=== PATIENT | male | born 1940 | race Caucasian/White ===

== ENCOUNTER 2016-09-01 12:20 | Emergency (ER) | payer MEDICARE, MEDICAID ==
[~2016-09-01 12:20] MED LIST: CYCL1TAB29 PO; FINA5TAB2 PO; FLUO10CA5 PO; GABA600T PO; HYDR12.57 PO; LISI10TA3 PO; OMEP40CA2 PO; OXYC1TAB36 PO; TAMS0.4C4 PO; TEMA30CA PO
[2016-09-01 12:25] VITALS: BP 133/85; PULSE 84; RESP 16; TEMP 98.2; O2SAT 98
--- NOTE | 2016-09-01 12:41 | PD ---
HPI Chief Complaint: Musculoskeletal Complaint Time Seen by Provider: 12:41 Travel History International Travel<30 days: No Contact w/Intl Traveler<30days: No Traveled to known affect area: No History of Present Illness HPI 76 YO [place]i only speaking male with PMH of squamous cell carcinoma, pancreatitis, hypertension, chronic back pain presents to the ED for evaluation of right shoulder pain. Patient states that he has had this pain for a few weeks but now moved into his arm and chest. No exacerbating factors reported. In fact the patient states that he works out "like a bull" a few times a week. He denies associated palpitations, shortness of breath, nausea, vomiting, diaphoresis. He states that he has had a few episodes of right-sided cramping under the rib cage. He denies fever, chills, coughing, nausea, vomiting, melena , hematochezia. He endorses colonoscopy within the last 3-4 years. Patient is very verbose, difficult to redirect, history taking was 37 minutes total. [facility] Social History Tobacco Use: Yes Allergies-Medications (Allergen,Severity, Reaction): Coded Allergies: Aspirin (Verified Allergy, Severe, Hives, 09/01/16) Sulfa (Verified Allergy, Severe, Hives, 09/01/16) Uncoded Allergies: MEPROBAMATE (Allergy, Severe, Psychosis, 06/14/16) Tri-Mix (Papaverin,Phentolamine,Prostaglandin) (Allergy, Severe, Swelling, 08/04/16) blisters, sores on skin Reported Meds & Prescriptions Reported Meds & Active Scripts Active Macrobid (Nitrofurantoin Monoh/Nitrofur Macro) 100 Mg Cap 100 Mg PO BID 7 Days Reported Gabapentin 600 Mg Tab 600 Mg PO TID Omeprazole 40 Mg Cap 40 Mg PO DAILY Temazepam 30 Mg Cap 30 Mg PO HS PRN Tamsulosin (Tamsulosin HCl) 0.4 Mg Cap 0.4 Mg PO HS Oxycodone-Acetaminophen 10-325 mg Tab 1 Tab PO TID PRN Fluoxetine (Fluoxetine HCl) 10 Mg Cap 10 Mg PO DAILY Flexeril (Cyclobenzaprine HCl) 10 Mg Tab 10 Mg PO TID Hydrochlorothiazide 12.5 Mg Cap 12.5 Mg PO DAILY Lisinopril 10 Mg Tab 10 Mg PO DAILY Finasteride 5 Mg Tab 5 Mg PO DAILY Do not crush. Review of Systems Except as stated in HPI: all other systems reviewed are Neg Physical Exam Narrative GENERAL: Well-nourished, well-developed obese male in no acute distress. SKIN: Focused skin assessment warm/dry. HEAD: Normocephalic. EYES: No scleral icterus. No injection or drainage. NECK: Supple, trachea midline. No JVD or lymphadenopathy. CARDIOVASCULAR: Regular rate and rhythm without murmurs, gallops, or rubs. RESPIRATORY: Breath sounds clear and equal bilaterally. No accessory muscle use. GASTROINTESTINAL: Abdomen soft, protuberant, non-tender, nondistended. Active bowel sounds. No palpable masses. MUSCULOSKELETAL: No cyanosis, or edema. FOCUSED RIGHT UPPER EXTREMITY EXAM: 2+ radial pulse. No tenderness to palpation of the scapula, acromioclavicular joint or humerus. 5/5 strength in all muscle groups of the upper extremity. BACK: Nontender without obvious deformity. No CVA tenderness. Data Data Last Documented VS Vital Signs Date Time Temp Pulse Resp B/P Pulse Ox O2 Delivery O2 Flow Rate FiO2 09/01/16 17:11 82 15 137/87 98 09/01/16 12:25 98.2 Orders Complete Blood Count With Diff (09/01/16 13:17) Comprehensive Metabolic Panel (09/01/16 13:17) Lipase (09/01/16 13:17) Prothrombin Time / Inr (Pt) (09/01/16 13:17) Act Partial Throm Time (Ptt) (09/01/16 13:17) Urinalysis - C+S If Indicated (09/01/16 13:17) Ct Abd/Pel W Iv Contrast(Rout) (09/01/16 13:17) Iv Access Insert/Monitor (09/01/16 13:17) Ecg Monitoring (09/01/16 13:17) Oximetry (09/01/16 13:17) Morphine Inj (Morphine Inj) (09/01/16 13:30) Sodium Chlor 0.9% 1000 Ml Inj (Ns 1000 M (09/01/16 13:17) Sodium Chloride 0.9% Flush (Ns Flush) (09/01/16 13:30) Electrocardiogram (09/01/16 13:17) Ct Thorax/ Chest W Iv Contrast (09/01/16 ) Shoulder, Complete (>2vws) (09/01/16 14:36) Urine Culture (09/01/16 15:45) Labs Laboratory Tests Test 09/01/16 09/01/16 13:20 15:45 White Blood Count 9.7 TH/MM3 Red Blood Count 4.99 MIL/MM3 Hemoglobin 14.8 GM/DL Hematocrit 44.2 % Mean Corpuscular Volume 88.7 FL Mean Corpuscular Hemoglobin 29.8 PG Mean Corpuscular Hemoglobin 33.5 % Concent Red Cell Distribution Width 13.8 % Platelet Count 217 TH/MM3 Mean Platelet Volume 9.5 FL Neutrophils (%) (Auto) 66.2 % Lymphocytes (%) (Auto) 20.9 % Monocytes (%) (Auto) 9.7 % Eosinophils (%) (Auto) 2.8 % Basophils (%) (Auto) 0.4 % Neutrophils # (Auto) 6.4 TH/MM3 Lymphocytes # (Auto) 2.0 TH/MM3 Monocytes # (Auto) 0.9 TH/MM3 Eosinophils # (Auto) 0.3 TH/MM3 Basophils # (Auto) 0.0 TH/MM3 CBC Comment DIFF FINAL Differential Comment Prothrombin Time 10.8 SEC Prothromb Time International 1.0 RATIO Ratio Activated Partial 28.7 SEC Thromboplast Time Sodium Level 138 MEQ/L Potassium Level 4.1 MEQ/L Chloride Level 107 MEQ/L Carbon Dioxide Level 22.5 MEQ/L Anion Gap 9 MEQ/L Blood Urea Nitrogen 17 MG/DL Creatinine 1.03 MG/DL Estimat Glomerular Filtration 70 ML/MIN Rate Random Glucose 106 MG/DL Calcium Level 8.4 MG/DL Total Bilirubin 0.3 MG/DL Aspartate Amino Transf 20 U/L (AST/SGOT) Alanine Aminotransferase 40 U/L (ALT/SGPT) Alkaline Phosphatase 86 U/L Total Protein 6.9 GM/DL Albumin 3.3 GM/DL Lipase 122 U/L Urine Color YELLOW Urine Turbidity CLEAR Urine pH 5.5 Urine Specific [place] 1.018 Urine Protein NEG mg/dL Urine Glucose (UA) NEG mg/dL Urine Ketones NEG mg/dL Urine Occult Blood TRACE Urine Nitrite POS Urine Bilirubin NEG Urine Urobilinogen LESS THAN 2.0 MG/DL Urine Leukocyte Esterase LARGE Urine RBC 2 /hpf Urine WBC 18 /hpf Urine Squamous Epithelial <1 /hpf Cells Urine Bacteria MANY /hpf Microscopic Urinalysis Comment CULTURE INDICATED MDM Medical Decision Making Medical Screen Exam Complete: Yes Emergency Medical Condition: Yes Differential Diagnosis Metastatic disease versus cholecystitis versus musculoskeletal pain versus other Narrative Course 76 YO [place] only speaking male with PMH of squamous cell carcinoma, pancreatitis, hypertension presents to the ED for evaluation of "a few weeks history" of right shoulder pain, now moved into his arm and chest. No exacerbating factors reported. He denies associated palpitations, shortness of breath, nausea, vomiting, diaphoresis. He states that he has had a few episodes of right-sided cramping under the rib cage. He denies nausea, vomiting , melena, hematochezia. He endorses colonoscopy within the last 3-4 years. Patient is very verbose, difficult to redirect, history taking was 37 minutes total. Vitals reviewed. Patient is nontoxic-appearing on physical exam. Chest is CTAB. Abdomen is unremarkable. There is no tenderness to palpation, loss of strength or limitations to range of motion of the right shoulder. Patient was administered 4 mg of morphine and a liter of normal saline. EKG rate 80, sinus rhythm. NH interval 157, QRS 99, QTC 406 ms. Incomplete RBBB. No acute ST changes. Reviewed by Dr. Garcia. No acute abnormalities of the CBC, CMP or coags. CT of the abdomen without acute findings. CT of the chest with no acute abnormality per radiology read. Right shoulder x-ray reveals osteoarthritis of the acromioclavicular joint. UA: Nitrate positive. Unfortunately the patient is allergic to NSAIDs. I discussed the results of the workup with the patient. We'll prescribe Macrobid 100 mg twice a day 7 days. He is instructed to avoid heavy lifting or overuse the shoulder, follow- up with the orthopedist for further evaluation. The patient indicated understanding of the instructions and is agreeable to the care plan. He is stable and discharged home. Diagnosis Primary Impression: Osteoarthritis of right shoulder Qualified Code: M19.011 - Osteoarthritis of right shoulder, unspecified osteoarthritis type Additional Impression: UTI (urinary tract infection) Qualified Code: N39.0 - Urinary tract infection without hematuria, site unspecified Referrals: Orthopedist Patient Instructions: General Instructions, Osteoarthritis (ED) Additional Instructions: Rest, hydrate. Take antibiotics as prescribed. Take them until they are all gone. No heavy lifting with the right arm for 10 days. Warm or cold compresses applied to the shoulder for 10-15 minutes a few times per day may help to decrease your pain symptoms. Follow up with the orthopedist for further evaluation. Return to the ED for any urgent or emergent medical condition. Med/Other Pt SpecificInfo: Prescription(s) given Scripts Nitrofurantoin Monohydrate Macrocrystals (Macrobid)100 Mg Flx481 Mg PO BID 7 Days Ref 0 Prov:Ammy Garcia MD 09/01/16 Disposition: 01 DISCHARGE HOME Condition: Stable Darlene Ray Sep 01, 2016 12:41
[2016-09-01] MEDS ORDERED: SODIUM CHLOR 0.9% 1000 ML INJ 1,000 ML IV SCH (13:17)
[2016-09-01] MEDS ORDERED: SODIUM CHLORIDE 0.9% FLUSH 10 ML FLUSH IV FLUSH PRN (13:30)
[2016-09-01] MEDS ORDERED: MORPHINE SULFATE 4 MG/ML INJ IV PUSH ONE (13:30)
[2016-09-01 13:44] LABS: AUTOMATED NEUTROPHIL # 6.4 TH/MM3 (1.8-7.7); BASOPHIL % 0.4 % (0.0-2.0); EOSINOPHIL # 0.3 TH/MM3 (0-0.4); EOSINOPHIL % 2.8 % (0.0-4.0); HEMATOCRIT 44.2 % (39.0-51.0); HEMO FLAGS DIFF FINAL; LYMPH % 20.9 % (9.0-44.0); MEAN CELL VOLUME 88.7 FL (80.0-100.0); MEAN CORPUSCULAR HEMOGLOBIN 29.8 PG (27.0-34.0); MEAN CORPUSCULAR HGB CONC 33.5 % (32.0-36.0); MONO % 9.7 % (0.0-8.0); NEUT % 66.2 % (16.0-70.0); PLATELET COUNT 217 TH/MM3 (150-450); RED BLOOD COUNT 4.99 MIL/MM3 (4.50-5.90); RED CELL DISTRIBUTION WIDTH 13.8 % (11.6-17.2); WHITE BLOOD COUNT 9.7 TH/MM3 (4.0-11.0)
[2016-09-01 13:55] LABS: APTT (PATIENT) 28.7 SEC (24.3-30.1); PROTHROMBIN TIME - PATIENT 10.8 SEC (9.8-11.6)
[2016-09-01 14:01] LABS: ANION GAP 9 MEQ/L (5-15); AST (GOT) 20 U/L (15-37); BICARBONATE 22.5 MEQ/L (21.0-32.0); BLOOD UREA NITROGEN 17 MG/DL (7-18); CHLORIDE 107 MEQ/L (98-107); GLOMERULAR FILTRATION RATE 70 ML/MIN (>89); POTASSIUM 4.1 MEQ/L (3.5-5.1); SODIUM (NA) 138 MEQ/L (136-145)
[2016-09-01 14:08] LABS: ALKALINE PHOSPHATASE 86 U/L (45-117); ALT (GPT) 40 U/L (12-78); TOTAL BILIRUBIN ADULT 0.3 MG/DL (0.2-1.0)
[2016-09-01 14:30] VITALS: BP 122/79; PULSE 74; RESP 16; O2SAT 98
[2016-09-01] MEDS ORDERED: IOHEXOL 350 MG/ML 10 ML VIAL (for RAD DIAG) IV ONE (15:17)
--- NOTE | 2016-09-01 15:29 | RADRPT ---
EXAM DATE/TIME: 09/01/2016 15:14 [facility] COMPARISON: No previous studies available for comparison. INDICATIONS : Pain radiating down right arm. MEDICAL HISTORY : None. SURGICAL HISTORY : None. ENCOUNTER: Initial ACUITY: 1 day PAIN SCORE: 5/10 LOCATION: Right shoulder. FINDINGS: 4 views of the right shoulder demonstrate no fracture or dislocation. Mineralization is within normal limits. There are degenerative changes at the greater tuberosity. Acromioclavicular joint is intact but demonstrates a mild to moderate hypertrophic osteoarthritis. No soft tissue abnormality is identi fied. CONCLUSION: No acute right shoulder abnormality is identified. There is osteoarthritis of the acromioclavicular j oint. Darius Steel MD on September 01, 2016 at 15:26 Board Certified Radiologist. This report was verified electronically.
--- NOTE | 2016-09-01 15:44 | RADRPT ---
EXAM DATE/TIME: 09/01/2016 15:17 [facility] COMPARISON: No previous studies available for comparison. INDICATIONS : Right upper quadrant pain radiating to shoulder. IV CONTRAST: 100 cc Omnipaque 350 (iohexol) IV ; Cumulative dose for multiple exams. ORAL CONTRAST: No oral contrast ingested. RADIATION DOSE: 16.69 CTDIvol (mGy) ; Combined studies - Thorax/Abdomen/Pelvis MEDICAL HISTORY : Hypertension. SURGICAL HISTORY : Bladder, prostate, gi bleed, urethra ENCOUNTER: Initial ACUITY: 2 days PAIN SCALE: 6/10 LOCATION: Right upper quadrant TECHNIQUE: Volumetric scanning of the abdomen and pelvis was performed. Using automated exposure control and ad justment of the mA and/or kV according to patient size, radiation dose was kept as low as reasonably achievable to obtain optimal diagnostic quality images. DICOM format image data is available electro nically for review and comparison. FINDINGS: LOWER LUNGS: Please refer to chest CT report for description of the supradiaphragmatic findings. LIVER: The liver measures 19.3 cm and demonstrates attenuation characteristic of steatosis. No lesion is see n. There is no dilation of the biliary tree. No calcified gallstones. SPLEEN: Normal size without lesion. PANCREAS: Within normal limits. KIDNEYS: Both kidneys demonstrate areas of parenchymal scar. There are 2 low-density lesions in the right kidn ey measuring 11 mm and 16 mm and have density measurements characteristic of simple cysts. ADRENAL GLANDS: Within normal limits. VASCULAR: There is no aortic aneurysm. There is mild atherosclerotic disease. BOWEL/MESENTERY: The stomach, small bowel, and colon demonstrate no acute abnormality. There is no free intraperitone al air or fluid. There is sigmoid diverticulosis. ABDOMINAL WALL: There is thinning of the rectus abdominis musculature inferiorly adjacent to the pubic bone. Mesh is present in this area related to prior hernia repair. There is a right inguinal hernia containing a po rtion of the right urinary bladder. RETROPERITONEUM: There is no lymphadenopathy. BLADDER: A portion of the right urinary bladder extends into a right inguinal hernia. There is no wall thicken ing or mass. REPRODUCTIVE: Within normal limits. INGUINAL: There is no lymphadenopathy. There is a right inguinal hernia. MUSCULOSKELETAL: There are degenerative changes of the spine. CONCLUSION: 1. No acute finding is identified to explain the clinical symptoms. 2. There is a small right inguinal hernia containing a portion of the urinary bladder. 3. Nonacute findings include hepatic steatosis, mild atherosclerotic disease, sigmoid diverticulosis, and bilateral renal scarring. Darius Steel MD on September 01, 2016 at 15:33 Board Certified Radiologist. This report was verified electronically.
--- NOTE | 2016-09-01 15:46 | RADRPT ---
EXAM DATE/TIME: 09/01/2016 15:17 [facility] COMPARISON: No previous studies available for comparison. INDICATIONS : Right upper quadrant pain radiating to shoulder. IV CONTRAST: 100 cc Omnipaque 350 (iohexol) IV ; Cumulative dose for multiple exams. RADIATION DOSE: 16.69 CTDIvol (mGy) ; Combined studies - Thorax/Abdomen/Pelvis MEDICAL HISTORY : Hypertension. SURGICAL HISTORY : Bladder, prostate urethra, gi bleed ENCOUNTER: Initial ACUITY: 1 day PAIN SCALE: 6/10 LOCATION: abdominal TECHNIQUE: Volumetric scanning of the chest was performed. Using automated exposure control and adjustment of t he mA and/or kV according to patient size, radiation dose was kept as low as reasonably achievable to obtain optimal diagnostic quality images. DICOM format image data is available electronically for review and comparison. Follow-up recommendations for incidentally detected pulmonary nodules are based at a minimum on nodul e size and patient risk factors according to Fleischner Society Guidelines. FINDINGS: LUNGS: There is no consolidation or pneumothorax. No concerning pulmonary nodule is visualized. PLEURA: There is no pleural thickening or pleural effusion. MEDIASTINUM: The heart and great vessels demonstrate no acute abnormality. There is no mediastinal or hilar lymph adenopathy. AXILLAE: Within normal limits. No lymphadenopathy. SKELETAL: There are degenerative changes of the thoracic spine. MISCELLANEOUS: Please refer to abdomen and pelvis CT report for description of the subdiaphragmatic findings. CONCLUSION: No acute abnormality is identified within the chest. Darius Steel MD on September 01, 2016 at 15:42 Board Certified Radiologist. This report was verified electronically.
[2016-09-01 16:02] LABS: BACTERIA, URINE MANY /hpf; BLOOD, URINE TRACE (NEG); COMMENT (UR) CULTURE INDICATED; CULTURE IF INDICATED CULTURE INDICATED; GLUCOSE,URINE NEG (NEG); KETONE, URINE NEG (NEG); PH, URINE 5.5 (5.0-8.5); SQUAMOUS EPITHELIAL CELL URINE <1 /hpf (0-5); URINE COLOR YELLOW (YELLW/STRAW)
[2016-09-01 16:03] LABS: NITRITE,URINE POS (NEG)
[2016-09-01] MEDS ORDERED: MACR100C2 PO (16:28)
[2016-09-01 17:11] VITALS: BP 137/87
--- NOTE | 2016-09-02 12:26 | EKG ---
Date Performed: 09/01/2016 Time Performed: 12:45:07 PTAGE: 76 years EKG: Sinus rhythm INCOMPLETE RIGHT BUNDLE BRANCH BLOCK LEFT ANTERIOR FASCICULAR BLOCK ABNORMAL ECG NO PREVIOUS TRACING DOCTOR: Daniel Valadez Interpretating Date/Time 09/02/2016 12:20:42
== END 2016-09-01 17:11 | disposition home or self-care (01) ==
LOC: NEPE 12:20
DX: M19.011 Primary osteoarthritis, right shoulder (principal); N39.0 Urinary tract infection, site not specified; I10 Essential (primary) hypertension; Z72.0 Tobacco use; B96.20 Unspecified Escherichia coli [E. coli] as the cause of diseases classified elsewhere
CPT/HCPCS: 71260; 73030; 74177; 80053; 81001; 83690; 85025; 85610; 85730; 87077; 87086; 87186; 93005; 96374; 99285; J2270; J7030; Q9967

== ENCOUNTER 2016-09-28 02:25 | Observation (INO) | payer MEDICARE, MEDICAID ==
[~2016-09-28] VITALS: Ht 175.3 cm; Wt 90.0 kg
[2016-09-28] VITALS (7 sets, daily range): BP systolic 114–175; BP diastolic 75–99; PULSE 67–92; RESP 15–24; TEMP 97.8–97.9; O2SAT 95–99
[~2016-09-28 02:25] MED LIST changes: +MACR100C2 PO
--- NOTE | 2016-09-28 02:58 | PD ---
HPI Chief Complaint: Abdominal Pain Time Seen by Provider: 02:38 Travel History International Travel<30 days: No Contact w/Intl Traveler<30days: No Traveled to known affect area: No History of Present Illness HPI PATIENT IS CYPRIOT SPEAKING (SOUTH A[place]). C/O EPIG REGION PAIN, 09/21, ONSET SINCE 2199 TODAY, NONRAD, DIFFICULT FOR PATIENT TO DESCRIBE PAIN HE STATES THAT IT HAS FELT SHARP,BURNING/PRESSURE ALL AT DIFFERENT TIMES TODAY. PT STATES THAT HE DIDN'T TAKE HIS PERCOCET B/C HE DIDN'T WANT TO MASK ANYTHING. ALL: ASA(ANGIOEDEMA), SULFA (HIVES), METHYLENE BLUE AND RED DYE PMHX: HTN, BPH, CHRONIC BACK PAIN WITH BULGING DISK MEDS: LISINOPRIL, HCTZ, FLOMAX, NEURONTIN, PERCOCET 10MG SMOKES 02/[address] LAW [facility] Past Medical History Cancer: Yes Gastrointestinal Disorders: Yes (HX GI BLEED) Genitourinary: Yes (BPH) Hypertension: Yes Musculoskeletal: Yes (DDD) Tetanus Vaccination: Unknown Past Surgical History Surgical History: No Previous Surgery Abdominal Surgery: Yes (HERNIA) Genitourinary Surgery: Yes (URETHRAL, PROSTATE) Other Surgery: Yes (SKIN CA REMOVAL, HEMORRHOID) Social History Alcohol Use: No Tobacco Use: Yes (02/15 ppd) Substance Use: No Allergies-Medications (Allergen,Severity, Reaction): Coded Allergies: Sulfa (Sulfonamide Antibiotics) (Unverified Allergy, Severe, Hives, ) aspirin (Unverified Allergy, Severe, Anaphylaxis, 09/28/16) methylene blue (Unverified Allergy, Unknown, 09/28/16) red dye (Unverified Allergy, Unknown, 09/28/16) Uncoded Allergies: MEPROBAMATE (Allergy, Severe, Psychosis, 06/14/16) Tri-Mix (Papaverin,Phentolamine,Prostaglandin) (Allergy, Severe, Swelling, 08/04/16) blisters, sores on skin Reported Meds & Prescriptions Reported Meds & Active Scripts Active Reported Gabapentin 600 Mg Tab 600 Mg PO TID Tamsulosin (Tamsulosin HCl) 0.4 Mg Cap 0.4 Mg PO HS Oxycodone-Acetaminophen 10-325 mg Tab 1 Tab PO TID PRN Hydrochlorothiazide 12.5 Mg Cap 12.5 Mg PO DAILY Lisinopril 10 Mg Tab 10 Mg PO DAILY Review of Systems Except as stated in HPI: all other systems reviewed are Neg Gastrointestinal: Positive: Nausea, Abdominal Pain Physical Exam Narrative GENERAL: SKIN: Warm and dry. HEAD: Atraumatic. Normocephalic. EYES: Pupils equal and round. No scleral icterus. No injection or drainage. ENT: No nasal bleeding or discharge. Mucous membranes pink and moist. NECK: Trachea midline. No JVD. CARDIOVASCULAR: Regular rate and rhythm. RESPIRATORY: No accessory muscle use. Clear to auscultation. Breath sounds equal bilaterally. GASTROINTESTINAL: Abdomen soft, EPIG TTP, nondistended. MUSCULOSKELETAL: Extremities without clubbing, cyanosis, or edema. No obvious deformities. NEUROLOGICAL: Awake and alert. No obvious cranial nerve deficits. Motor grossly within normal limits. Five out of 5 muscle strength in the arms and legs. Normal speech. PSYCHIATRIC: Appropriate mood and affect; insight and judgment normal. Data Data Last Documented VS Vital Signs Date Time Temp Pulse Resp B/P Pulse Ox O2 Delivery O2 Flow Rate FiO2 09/28/16 02:50 97.8 84 18 127/75 96 Room Air Orders Electrocardiogram (09/28/16 02:50) Complete Blood Count With Diff (09/28/16 02:50) Comprehensive Metabolic Panel (09/28/16 02:50) Ckmb (Isoenzyme) Profile (09/28/16 02:50) Troponin I (09/28/16 02:50) B-Type Natriuretic Peptide (09/28/16 02:50) Amylase (09/28/16 02:50) Lipase (09/28/16 02:50) Ct Abd/Pel W Iv Contrast(Rout) (09/28/16 02:50) Iv Access Insert/Monitor (09/28/16 02:50) Ecg Monitoring (09/28/16 02:50) Oximetry (09/28/16 02:50) Alcohol (Ethanol) (09/28/16 02:50) Salicylates (Aspirin) (09/28/16 02:50) Tylenol (Acetaminophen) (09/28/16 02:50) Ondansetron Inj (Zofran Inj) (09/28/16 03:00) Hydromorphone Pf Inj (Dilaudid Pf Inj) (09/28/16 03:00) Iohexol 350 Inj (Omnipaque 350 Inj) (09/28/16 04:03) Admit Order (Ed Use Only) (09/28/16 04:42) Labs Laboratory Tests Test 09/28/16 02:57 White Blood Count 9.3 TH/MM3 Red Blood Count 4.98 MIL/MM3 Hemoglobin 14.8 GM/DL Hematocrit 43.9 % Mean Corpuscular Volume 88.1 FL Mean Corpuscular Hemoglobin 29.7 PG Mean Corpuscular Hemoglobin 33.7 % Concent Red Cell Distribution Width 13.6 % Platelet Count 208 TH/MM3 Mean Platelet Volume 9.1 FL Neutrophils (%) (Auto) 67.2 % Lymphocytes (%) (Auto) 17.2 % Monocytes (%) (Auto) 11.6 % Eosinophils (%) (Auto) 3.2 % Basophils (%) (Auto) 0.8 % Neutrophils # (Auto) 6.3 TH/MM3 Lymphocytes # (Auto) 1.6 TH/MM3 Monocytes # (Auto) 1.1 TH/MM3 Eosinophils # (Auto) 0.3 TH/MM3 Basophils # (Auto) 0.1 TH/MM3 CBC Comment DIFF FINAL Differential Comment Sodium Level 138 MEQ/L Potassium Level 4.2 MEQ/L Chloride Level 103 MEQ/L Carbon Dioxide Level 26.6 MEQ/L Anion Gap 8 MEQ/L Blood Urea Nitrogen 18 MG/DL Creatinine 1.16 MG/DL Estimat Glomerular Filtration 61 ML/MIN Rate Random Glucose 171 MG/DL Calcium Level 8.1 MG/DL Total Bilirubin 0.2 MG/DL Aspartate Amino Transf 26 U/L (AST/SGOT) Alanine Aminotransferase 48 U/L (ALT/SGPT) Alkaline Phosphatase 103 U/L Total Creatine Kinase 86 U/L Troponin I LESS THAN 0.02 NG/ML B-Type Natriuretic Peptide 19 PG/ML Total Protein 6.8 GM/DL Albumin 3.2 GM/DL Amylase Level 23 U/L Lipase 123 U/L Salicylates Level 1.9 MG/DL Acetaminophen Level LESS THAN 2.0 MCG/ML Ethyl Alcohol Level LESS THAN 3 MG/DL MDM Medical Decision Making Medical Screen Exam Complete: Yes Emergency Medical Condition: Yes Medical Record Reviewed: Yes Interpretation(s) NSR 81, IRBBB, NONSPEC STT CHANGES, NO STEMI PATTERN Differential Diagnosis PANCREATITIS V AAA V TX V NONSTEMI V GB DZ Narrative Course NO E/O AAA, NL LIPASE, BUT CT DID SHOW SOME QUESTIONABLE GB FINDINGS, NO OBVIOUS CHOLECYSTITIS/CHOLEDOCHOLITHIASIS NOR ANY GROSS E/O GB ABSCESS...DUE TO PATIENT'S AGE AND RISK FACTORS, I BELIEVE IT PRUDENT TO EXCLUDE NONSTEMI. Diagnosis Primary Impression: ATYPICAL CP R/O TX Additional Impression: Gallbladder sludge Admitting Information Admitting Physician Requests: Observation Noel Drummond MD Sep 28, 2016 02:58 Noel Drummond MD Sep 28, 2016 02:58
[2016-09-28] MEDS ORDERED: HYDROmorphone HCL PF 1 MG/ML VIAL IV PUSH ONE (03:00)
[2016-09-28] MEDS ORDERED: ONDANSETRON HCL 4 MG/2 ML VIAL IV PUSH ONE (03:00)
[2016-09-28 03:06] LABS: AUTOMATED NEUTROPHIL # 6.3 TH/MM3 (1.8-7.7); BASOPHIL # 0.1 TH/MM3 (0-0.2); BASOPHIL % 0.8 % (0.0-2.0); EOSINOPHIL # 0.3 TH/MM3 (0-0.4); EOSINOPHIL % 3.2 % (0.0-4.0); HEMATOCRIT 43.9 % (39.0-51.0); HEMO FLAGS DIFF FINAL; LYMPH % 17.2 % (9.0-44.0); LYMPHOCYTE # 1.6 TH/MM3 (1.0-4.8); MEAN CELL VOLUME 88.1 FL (80.0-100.0); MEAN CORPUSCULAR HEMOGLOBIN 29.7 PG (27.0-34.0); MEAN CORPUSCULAR HGB CONC 33.7 % (32.0-36.0); MONO % 11.6 % (0.0-8.0); NEUT % 67.2 % (16.0-70.0); PLATELET COUNT 208 TH/MM3 (150-450); RED BLOOD COUNT 4.98 MIL/MM3 (4.50-5.90); RED CELL DISTRIBUTION WIDTH 13.6 % (11.6-17.2); WHITE BLOOD COUNT 9.3 TH/MM3 (4.0-11.0)
[2016-09-28 03:41] LABS: ACETAMINOPHEN LESS THAN 2.0 MCG/ML (10.0-30.0); ALKALINE PHOSPHATASE 103 U/L (45-117); ALT (GPT) 48 U/L (12-78); AMYLASE 23 U/L (25-115); ANION GAP 8 MEQ/L (5-15); AST (GOT) 26 U/L (15-37); BICARBONATE 26.6 MEQ/L (21.0-32.0); BLOOD UREA NITROGEN 18 MG/DL (7-18); CHLORIDE 103 MEQ/L (98-107); GLOMERULAR FILTRATION RATE 61 ML/MIN (>89); POTASSIUM 4.2 MEQ/L (3.5-5.1); SODIUM (NA) 138 MEQ/L (136-145); TOTAL BILIRUBIN ADULT 0.2 MG/DL (0.2-1.0)
[2016-09-28 03:42] LABS: ALCOHOL LESS THAN 3 MG/DL (0-5); CREATINE KINASE 86 U/L (39-308)
[2016-09-28] MEDS ORDERED: IOHEXOL 350 MG/ML 10 ML VIAL (for RAD DIAG) IV ONE (04:03)
--- NOTE | 2016-09-28 04:36 | RADRPT ---
EXAM DATE/TIME: 09/28/2016 03:56 [facility] COMPARISON: CT ABDOMEN & PELVIS W CONTRAST, September 01, 2016, 15:17. INDICATIONS : Epigastric pain with nausea and vomiting. IV CONTRAST: 100 cc Omnipaque 350 (iohexol) IV ORAL CONTRAST: No oral contrast ingested. RADIATION DOSE: 14.32 CTDIvol (mGy) MEDICAL HISTORY : Hypertension. Renal calculi. GI bleed SURGICAL HISTORY : Hernia repair ENCOUNTER: Initial ACUITY: 1 day PAIN SCALE: 7/10 LOCATION: epigastric TECHNIQUE: Volumetric scanning of the abdomen and pelvis was performed. Using automated exposure control and ad justment of the mA and/or kV according to patient size, radiation dose was kept as low as reasonably achievable to obtain optimal diagnostic quality images. DICOM format image data is available electro nically for review and comparison. FINDINGS: LOWER LUNGS: The visualized lower lungs are clear. LIVER: Regional fatty change without focal masses. No dilation of the intrahepatic biliary system. No calc ified gallstones. On axial images, the gallbladder wall is thin, but on the coronal reconstructions, there appears to be some induration of the fat about the inferior margin of the gallbladder. SPLEEN: Normal size without lesion. PANCREAS: Within normal limits. KIDNEYS: Stable appearance to the kidneys with bilateral cortical scarring and renal cysts. No evidence of hy dronephrosis. ADRENAL GLANDS: Within normal limits. VASCULAR: There is no aortic aneurysm. BOWEL/MESENTERY: There is a solitary loop of small bowel in the lower midline abdomen which is mildly dilated to 3.1 c m and demonstrates fecalization. There is an abrupt change in the diameter of small bowel at image # 55, but no mass is seen. Numerous sigmoid diverticula are present without radiographic evidence of d iverticulitis. ABDOMINAL WALL: Low abdominal ventral hernia repair mesh in place. RETROPERITONEUM: There is no lymphadenopathy. BLADDER: No wall thickening or mass. REPRODUCTIVE: Within normal limits. INGUINAL: Right inguinal hernia with protrusion of a portion of the urinary bladder, similar in appearance to p rior exam. MUSCULOSKELETAL: Within normal limits for patient age. CONCLUSION: 1. Questionable induration of the fat along the inferior margin of the gallbladder, only seen on craig nal reconstruction images. No calcified gallstones. If there is clinical suspicion for acalculus ch olecystitis, may consider performing hepatobiliary tract scan. 2. Fecalization of one loop of small bowel in the lower mid abdomen with mild dilation of the loop to 3.1 cm. Fecalization is a nonspecific finding that can be seen with obstruction, ischemia, ileus, a nd inflammation. 3. Stable right inguinal hernia containing a portion of the urinary bladder. Dickson Aceves MD on September 28, 2016 at 4:16 Board Certified Radiologist. This report was verified electronically.
[2016-09-28] MEDS ORDERED: ONDANSETRON HCL 4 MG/2 ML VIAL IV PRN (04:45)
[2016-09-28] MEDS ORDERED: MORPHINE SULFATE 4 MG/ML INJ IV PRN (04:45)
[2016-09-28] MEDS ORDERED: NITROGLYCERIN 0.4 MG SL 25 TABS/BTL SL PRN (04:45)
--- NOTE | 2016-09-28 06:17 | RADRPT ---
EXAM DATE/TIME: 09/28/2016 05:06 [facility] COMPARISON: No previous studies available for comparison. INDICATIONS : Right upper quadrant pain. MEDICAL HISTORY : Hypertension. GI bleed. SURGICAL HISTORY : Cyst removed from lung. Hernia repair. Bladder surgery. Skin cancer removal. ENCOUNTER: Initial ACUITY: 1 day PAIN SCORE: 0/10 LOCATION: Right upper quadrant MEASUREMENTS: LIVER: 16.6 cm length COMMON DUCT: 5 mm RIGHT KIDNEY: 9.0 x 5.1 x 5.6 cm FINDINGS: LIVER: Normal echotexture without focal lesion or ductal dilatation. Hepatopedal flow is seen in the portal vein. COMMON DUCT: No intraluminal mass or stone visualized. GALLBLADDER: The sludge in the gallbladder lumen. No shadowing stones. The gallbladder wall is normal thickness. PANCREAS: The visualized portions are within normal limits. RIGHT KIDNEY: No evidence of hydronephrosis, stone, or mass. CONCLUSION: 1. Hepatomegaly without focal lesion. 2. No gallstones seen. Moderate amount of sludge within the gallbladder lumen. Dickson Aceves MD on September 28, 2016 at 6:14 Board Certified Radiologist. This report was verified electronically.
[2016-09-28 06:56] LABS: CREATINE KINASE 83 U/L (39-308)
[2016-09-28 10:09] LABS: CREATINE KINASE 90 U/L (39-308)
--- NOTE | 2016-09-28 13:05 | EKG ---
Date Performed: 09/28/2016 Time Performed: 09:46:44 PTAGE: 76 years EKG: Sinus rhythm MARKED LEFT AXIS DEVIATION INCOMPLETE RIGHT BUNDLE BRANCH BLOCK ABNORMAL ECG PREVIOUS TRACING : 09/28/2016 05.44 Compared to prior tracing no significant change DOCTOR: Antonio Longoria Interpretating Date/Time 09/28/2016 13:03:50
--- NOTE | 2016-09-28 13:49 | RADRPT ---
EXAM DATE/TIME: 09/28/2016 13:21 [facility] COMPARISON: No previous studies available for comparison. INDICATIONS : Chest pain. MEDICAL HISTORY : Hypertension. Renal calculi. Carcinoma, basal cell. SURGICAL HISTORY : Hernia repair. Basal cell carcinoma removal. ENCOUNTER: Initial ACUITY: 2 days PAIN SCORE: 4/10 LOCATION: Bilateral chest FINDINGS: A single view of the chest demonstrates the lungs to be symmetrically aerated without evidence of mas s, infiltrate or effusion. The cardiomediastinal contours are unremarkable. Osseous structures are intact. CONCLUSION: No acute disease. There is no evidence of metastatic disease. Campbell Antunez MD on September 28, 2016 at 13:47 Board Certified Radiologist. This report was verified electronically.
--- NOTE | 2016-09-28 14:57 | EKG ---
Date Performed: 09/28/2016 Time Performed: 05:44:30 PTAGE: 76 years EKG: Sinus rhythm MARKED LEFT AXIS DEVIATION INCOMPLETE RIGHT BUNDLE BRANCH BLOCK ABNORMAL ECG PREVIOUS TRACING : 09/01/2016 12.45 Since previous tracing, no significant change noted DOCTOR: Renard Benitez Interpretating Date/Time 09/28/2016 14:56:42
--- NOTE | 2016-09-28 14:59 | HHI.HP ---
HPI Primary Care Physician No Primary Care Physician Chief Complaint Abdominal pain History of Present Illness This is a 76-year-old Cymro-speaking patient that comes to ED to evaluate abdominal discomfort and was also admitted to the chest pain center. He speaks Cymro. We used [employer] to translate. He complains of abdominal discomfort. Points to epigastric region and then rubs around the rest of his abdomen. When asked how long this is bothering him he states "a while." He apparently had this partially evaluated while in [place]. He recently moved here stating that he likes the place. States the abdominal discomfort at times causes nausea but has had no emesis. Denies blood in stool. Patient was admitted to the chest pain center and when specifically asking if having chest pain he points to epigastric region states yes. He has had a cardiac evaluation also in the past. He states he had a stress test about 1 year ago and that was normal. Currently is feeling okay. Review of Systems General: Patient denies fevers, chills recent, and recent travel. Patient is Cymro-speaking but we use the [place] system. HEENT: Patient denies headache, sore throat, difficulty swallowing. Cardiovascular: Has the chest discomfort as mentioned above. Denies sensation of heart beating rapidly or irregularly. No syncope. Denies diaphoresis. Respiratory: Denies shortness of breath or inspirational chest discomfort. Denies coughing wheezing or hemoptysis. GI: Complains of nausea but no emesis. Complains of abdominal pain. Denies dark or bloody stools. Musculoskeletal: Patient denies joint pain or edema. Denies calf pain or edema. Neurovascular: Patient denies numbness, tingling, weakness in extremities. Denies headache. Endocrine: Denies polyuria and polydipsia. Hematologic: Denies easy bruising. Skin: Denies rash or itching. Past Family Social History Allergies: Coded Allergies: Sulfa (Sulfonamide Antibiotics) (Unverified Allergy, Severe, Hives, ) aspirin (Unverified Allergy, Severe, Anaphylaxis, 09/28/16) methylene blue (Unverified Allergy, Unknown, 09/28/16) red dye (Unverified Allergy, Unknown, 09/28/16) Uncoded Allergies: MEPROBAMATE (Allergy, Severe, Psychosis, 06/14/16) Tri-Mix (Papaverin,Phentolamine,Prostaglandin) (Allergy, Severe, Swelling, 08/04/16) blisters, sores on skin Past Medical History Hypertension BPH chronic back and neck pain. Denies hyperlipidemia, diabetes, and known CAD. Past Surgical History Hernia repair. Prostate surgery. Reported Medications Reported Meds & Active Scripts Active Reported Gabapentin 600 Mg Tab 600 Mg PO TID Tamsulosin (Tamsulosin HCl) 0.4 Mg Cap 0.4 Mg PO HS Oxycodone-Acetaminophen 10-325 mg Tab 1 Tab PO TID PRN Hydrochlorothiazide 12.5 Mg Cap 12.5 Mg PO DAILY Lisinopril 10 Mg Tab 10 Mg PO DAILY Active Ordered Medications Current Medications Medications (Trade) Dose Ordered Sig/Xi Route Start Time Stop Time Status Last Admin (Morphine Inj) 2 mg Q4H PRN IV 09/28/16 04:45 (Zofran Inj) 4 mg Q6H PRN IV 09/28/16 04:45 (Nitrostat Sl) 0.4 mg Q5M PRN SL 09/28/16 04:45 Family History Does not know his family history. Social History Patient smokes one quarter pack of cigarettes daily. Denies alcohol or illicit drugs. Physical Exam Vital Signs Vital Signs Date Time Temp Pulse Resp B/P Pulse Ox O2 Delivery O2 Flow Rate FiO2 09/28/16 13:36 75 20 140/94 97 Room Air 09/28/16 10:40 72 24 157/92 97 Room Air 09/28/16 07:18 67 22 114/81 95 Room Air 09/28/16 05:06 99 09/28/16 04:55 96 09/28/16 02:50 97.8 84 18 127/75 96 Room Air 09/28/16 02:27 97.9 92 15 175/99 97 Room Air Physical Exam GENERAL: This is a well-nourished, well-developed patient, in no apparent distress. Patient speaks in clear complete sentences. Patient is pleasant. HEENT: Head is atraumatic and normocephalic. Neck is supple without lymphadenopathy and trachea is midline. No JVD or carotid bruits. CARDIOVASCULAR: Regular rate and rhythm without murmurs, gallops, or rubs. RESPIRATORY: Clear to auscultation. Breath sounds equal bilaterally. No wheezes , rales, or rhonchi. Chest wall is nontender. No use of accessory muscles. GASTROINTESTINAL: Abdomen is soft and nondistended. There is generalized abdominal tenderness but no guarding or rebound. No obvious pulsatile mass or bruit. No CVA tenderness. Strong femoral pulses bilaterally. Normal bowel sounds in all quadrants. MUSCULOSKELETAL: Patient is moving upper and lower extremities freely. No calf tenderness or edema, no Homans sign. Strong pulses in upper and lower extremities. NEUROLOGICAL: Patient is alert and oriented. Cranial nerves 2-12 are grossly intact. No focal deficits and speech is clear. SKIN: No rash and turgor is normal. Laboratory Laboratory Tests Test 09/28/16 09/28/16 09/28/16 02:57 05:47 09:20 White Blood Count 9.3 Red Blood Count 4.98 Hemoglobin 14.8 Hematocrit 43.9 Mean Corpuscular Volume 88.1 Mean Corpuscular Hemoglobin 29.7 Mean Corpuscular Hemoglobin 33.7 Concent Red Cell Distribution Width 13.6 Platelet Count 208 Mean Platelet Volume 9.1 Neutrophils (%) (Auto) 67.2 Lymphocytes (%) (Auto) 17.2 Monocytes (%) (Auto) 11.6 Eosinophils (%) (Auto) 3.2 Basophils (%) (Auto) 0.8 Neutrophils # (Auto) 6.3 Lymphocytes # (Auto) 1.6 Monocytes # (Auto) 1.1 Eosinophils # (Auto) 0.3 Basophils # (Auto) 0.1 CBC Comment DIFF FINAL Differential Comment Sodium Level 138 Potassium Level 4.2 Chloride Level 103 Carbon Dioxide Level 26.6 Anion Gap 8 Blood Urea Nitrogen 18 Creatinine 1.16 Estimat Glomerular Filtration 61 Rate Random Glucose 171 Calcium Level 8.1 Total Bilirubin 0.2 Aspartate Amino Transf 26 (AST/SGOT) Alanine Aminotransferase 48 (ALT/SGPT) Alkaline Phosphatase 103 Total Creatine Kinase 86 83 90 Troponin I LESS THAN 0.02 LESS THAN 0.02 LESS THAN 0.02 B-Type Natriuretic Peptide 19 Total Protein 6.8 Albumin 3.2 Amylase Level 23 Lipase 123 Salicylates Level 1.9 Acetaminophen Level LESS THAN 2.0 Ethyl Alcohol Level LESS THAN 3 Result Diagram: 09/28/16 0257 09/28/16 0257 Imaging Last 24 hours Impressions Gall Bladder Ultrasound 09/28/16 0448 Signed Impressions: Service Date/Time: September 05:06 - CONCLUSION: 1. Hepatomegaly without focal lesion. 2. No gallstones seen. Moderate amount of sludge within the gallbladder lumen. Dickson Aceves MD Abdomen/Pelvis CT 09/28/16 0250 Signed Impressions: Service Date/Time: September 03:56 - CONCLUSION: 1. Questionable induration of the fat along the inferior margin of the gallbladder , only seen on coronal reconstruction images. No calcified gallstones. If there is clinical suspicion for acalculus cholecystitis, may consider performing hepatobiliary tract scan. 2. Fecalization of one loop of small bowel in the lower mid abdomen with mild dilation of the loop to 3.1 cm. Fecalization is a nonspecific finding that can be seen with obstruction, ischemia, ileus, and inflammation. 3. Stable right inguinal hernia containing a portion of the urinary bladder. Dickson Aceves MD Chest X-Ray 09/28/16 0000 Signed Impressions: Service Date/Time: September 13:21 - CONCLUSION: No acute disease. There is no evidence of metastatic disease. Campbell Antunez MD Course EKGs have sinus rhythm without significant ST segment depressions or elevations. Assessment and Plan Assessment and Plan * Abdominal pain: Patient was admitted to chest pain center to evaluate his discomforts. His discomforts clearly appear to be related to GI. He was seen by Dr. Benitez. Patient has decided to leave AGAINST MEDICAL ADVICE stating he has to get his fingerprints obtained in [place] to obtain citizenship. States he has waited 5 years for this and cannot miss it. He states he will return to the ED tomorrow. His CT of the abdomen and pelvis and gallbladder ultrasound are both abnormal. He still chooses to leave without further evaluation at this time. Also a chest x-ray was not obtained in the ER earlier. I have ordered one but he has now left prior to getting the chest x-ray. He will leave AMA at this time. Explained to him that he likely will not be admitted to the chest pain center as his symptoms appear to be GI related and essentially should not be readmitted to the chest pain center. * Hypertension: Continue current medication. * BPH: Continue current medication. * Tobacco abuse: Patient counseled on importance of smoking cessation. * Patient has left AGAINST MEDICAL ADVICE. This was discussed in great length including the risks of even if he leaves. He chooses to leave. He certainly may return to the hospital when ever he chooses. Scott Adams Sep 28, 2016 14:59
--- NOTE | 2016-09-28 15:00 | EKG ---
Date Performed: 09/28/2016 Time Performed: 02:45:39 PTAGE: 76 years EKG: Sinus rhythm MARKED LEFT AXIS DEVIATION INCOMPLETE RIGHT BUNDLE BRANCH BLOCK ABNORMAL ECG NO PREVIOUS TRACING DOCTOR: Renard Benitez Interpretating Date/Time 09/28/2016 14:59:16
== END 2016-09-28 14:55 | disposition left against medical advice (07) ==
LOC: NEPC 02:25 → NEDA 04:43
PROVIDERS: ADMIT Internal Medicine Cardiovascular Disease; ATTEND Internal Medicine Cardiovascular Disease
DX: R10.13 Epigastric pain (principal); I10 Essential (primary) hypertension; K40.90 Unilateral inguinal hernia, without obstruction or gangrene, not specified as recurrent; N40.0 Benign prostatic hyperplasia without lower urinary tract symptoms; F17.210 Nicotine dependence, cigarettes, uncomplicated; I45.10 Unspecified right bundle-branch block; Z53.21 Procedure and treatment not carried out due to patient leaving prior to being seen by health care provider
CPT/HCPCS: 71010; 74177; 76705; 80053; 80307; 82150; 82550; 83690; 83880; 84484; 85025; 93005; 96374; 96375; 99285; G0378; J1170; J2405; Q9967

== ENCOUNTER 2016-11-06 17:55 | Emergency (ER) | payer MEDICARE, MEDICAID ==
[~2016-11-06 17:55] MED LIST changes: -CYCL1TAB29 PO; -FINA5TAB2 PO; -FLUO10CA5 PO; -MACR100C2 PO; -OMEP40CA2 PO; -TEMA30CA PO
[2016-11-06 17:57] VITALS: BP 127/94; PULSE 84; RESP 16; TEMP 98.5; O2SAT 99
--- NOTE | 2016-11-06 18:27 | PD ---
Physical Exam Date Seen by Provider: Nov 06, 2016 Time Seen by Provider: 18:25 Narrative 76 yo male here for feeling unwell after eating today. He was eating today and afterwards felt dizzy, lightheaded, nauseous and dyaphoretic. History of lung cancer, prostate issues, HTN and chronic back problems. No new med changes. Has had this happened x 3 times. Denies eating anything unusual. No chest pain but SOB. no urinary or BM issues. Smoker. About 1 hour ago it started. Vitals stable in triage. Awaiting bed placement. Data Data Last Documented VS Vital Signs Date Time Temp Pulse Resp B/P (MAP) Pulse Ox O2 Delivery O2 Flow Rate FiO2 11/06/16 17:57 98.5 84 16 127/94 (105) 99 Orders Orders Complete Blood Count With Diff (11/06/16 18:23) Comprehensive Metabolic Panel (11/06/16 18:23) Ckmb (Isoenzyme) Profile (11/06/16 18:23) Troponin I (11/06/16 18:23) Prothrombin Time / Inr (Pt) (11/06/16 18:23) Act Partial Throm Time (Ptt) (11/06/16 18:23) Lipase (11/06/16 18:23) Magnesium (Mg) (11/06/16 18:23) Thyroid Stimulating Hormone (11/06/16 18:23) Chest, Single Ap (11/06/16 18:23) MDM Medical Record Reviewed: Yes Supervised Visit with JADE: Ry Cabrera Nov 06, 2016 18:27
[2016-11-06 18:37] VITALS: BP 121/83; PULSE 83; RESP 17; TEMP 97.8; O2SAT 97
--- NOTE | 2016-11-06 19:06 | RADRPT ---
EXAM DATE/TIME: 11/06/2016 18:34 [facility] COMPARISON: CHEST SINGLE AP, September 28, 2016, 13:21. INDICATIONS : Flu like symptoms. MEDICAL HISTORY : Hypertension. Renal calculi. GI bleed SURGICAL HISTORY : hernia repair ENCOUNTER: Initial ACUITY: 3 days PAIN SCORE: 2/10 LOCATION: Bilateral upper chest FINDINGS: Portable AP view of the chest demonstrates a normal-sized cardiac silhouette. No effusion, consolidat ion, or pneumothorax is visualized. The bones and soft tissues demonstrate no acute abnormality. Ther e are degenerative changes of the thoracic spine. CONCLUSION: No acute cardiopulmonary abnormality is identified. Darius Steel MD on November 06, 2016 at 19:04 Board Certified Radiologist. This report was verified electronically.
[2016-11-06 19:27] LABS: AUTOMATED NEUTROPHIL # 8.1 TH/MM3 (1.8-7.7); BASOPHIL % 0.2 % (0.0-2.0); EOSINOPHIL # 0.2 TH/MM3 (0-0.4); HEMATOCRIT 44.1 % (39.0-51.0); HEMO FLAGS DIFF FINAL; LYMPH % 13.7 % (9.0-44.0); LYMPHOCYTE # 1.5 TH/MM3 (1.0-4.8); MEAN CELL VOLUME 88.3 FL (80.0-100.0); MEAN CORPUSCULAR HEMOGLOBIN 29.3 PG (27.0-34.0); MEAN CORPUSCULAR HGB CONC 33.2 % (32.0-36.0); MONO % 8.3 % (0.0-8.0); NEUT % 75.8 % (16.0-70.0); PLATELET COUNT 262 TH/MM3 (150-450); RED BLOOD COUNT 4.99 MIL/MM3 (4.50-5.90); RED CELL DISTRIBUTION WIDTH 13.7 % (11.6-17.2); WHITE BLOOD COUNT 10.7 TH/MM3 (4.0-11.0)
[2016-11-06 19:45] LABS: ALT (GPT) 38 U/L (12-78)
[2016-11-06 19:46] LABS: APTT (PATIENT) 27.8 SEC (24.3-30.1); PROTHROMBIN TIME - PATIENT 10.5 SEC (9.8-11.6)
[2016-11-06] MEDS ORDERED: MECLIZINE HCL 25 MG TAB PO ONE (20:00)
[2016-11-06 20:05] LABS: ALKALINE PHOSPHATASE 105 U/L (45-117); ANION GAP 7 MEQ/L (5-15); AST (GOT) 26 U/L (15-37); BICARBONATE 26.4 MEQ/L (21.0-32.0); BLOOD UREA NITROGEN 24 MG/DL (7-18); CHLORIDE 103 MEQ/L (98-107); GLOMERULAR FILTRATION RATE 47 ML/MIN (>89); MAGNESIUM 1.9 MG/DL (1.5-2.5); SODIUM (NA) 136 MEQ/L (136-145); TOTAL BILIRUBIN ADULT 0.3 MG/DL (0.2-1.0)
[2016-11-06 20:08] LABS: CREATINE KINASE 94 U/L (39-308); POTASSIUM 4.4 MEQ/L (3.5-5.1)
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
[2016-11-06] MEDS ORDERED: MECL-62 PO (20:26)
[2016-11-06] MEDS ORDERED: SODIUM CHLOR 0.9% 1000 ML INJ 1,000 ML IV SCH (20:30)
--- NOTE | 2016-11-07 12:00 | EKG ---
Date Performed: 11/06/2016 Time Performed: 20:23:31 PTAGE: 76 years EKG: Sinus rhythm BORDERLINE LEFT AXIS DEVIATION INCOMPLETE RIGHT BUNDLE BRANCH BLOCK BORDERLINE ECG PREVIOUS TRACING : 09/28/16 DOCTOR: Fernando Rendon Interpretating Date/Time 11/07/2016 11:57:01
== END 2016-11-06 21:37 | disposition home or self-care (01) ==
LOC: NEPD 17:55
DX: R42 Dizziness and giddiness (principal); N28.9 Disorder of kidney and ureter, unspecified; R94.31 Abnormal electrocardiogram [ECG] [EKG]; R06.02 Shortness of breath; I10 Essential (primary) hypertension; Z72.0 Tobacco use
CPT/HCPCS: 71010; 80053; 82550; 83690; 83735; 84443; 84484; 85025; 85610; 85730; 93005; 99284; J7030

== ENCOUNTER 2017-02-23 14:33 | Observation (INO) | payer MEDICARE, MEDICAID ==
[~2017-02-23 14:33] MED LIST changes: +MECL-62 PO
[2017-02-23 14:36] VITALS: BP 194/106; PULSE 117; RESP 16; TEMP 97.9; O2SAT 99
--- NOTE | 2017-02-23 15:36 | RADRPT ---
EXAM DATE/TIME: 02/23/2017 15:29 [facility] COMPARISON: CHEST SINGLE AP, November 06, 2016, 18:34. INDICATIONS : Syncopal episode yesterday, tingling in left arm today MEDICAL HISTORY : Hypertension. Renal calculi. GI bleed. Asthma. SURGICAL HISTORY : hernia repair. Tumor removal from lung ENCOUNTER: Initial ACUITY: 1 day PAIN SCORE: 0/10 LOCATION: Bilateral chest FINDINGS: PA and lateral views of the chest demonstrate a normal-sized cardiac silhouette. There is no effusion , consolidation, or pneumothorax. The bones and soft tissues demonstrate no acute abnormality. CONCLUSION: No acute cardiopulmonary abnormality is identified. Darius Steel MD on February 23, 2017 at 15:32 Board Certified Radiologist. This report was verified electronically.
[2017-02-23 16:30] VITALS: BP 123/91; PULSE 98; RESP 18; O2SAT 97
[2017-02-23 17:30] VITALS: BP 151/99; PULSE 94; RESP 18; O2SAT 97
--- NOTE | 2017-02-23 18:02 | PD ---
HPI Chief Complaint: Syncope/Near-Syncope Time Seen by Provider: 16:36 Travel History International Travel<30 days: No Contact w/Intl Traveler<30days: No Traveled to known affect area: No History of Present Illness HPI 76-year-old male patient presents to the ER today because he states that his blood pressures up and getting consecutively elevated over last few weeks. He also had chest pains when he came in today. He states is now gone. He denies any abdominal pain, fevers, or any other symptoms. He has been taking his lisinopril but states he has triple on this dose on his own. He states that he is not seen his primary care doctor in a while. He is from [place]. He states that he had been seen by a finance professional and had EKGs done last year and was told it was fine. He states that he is worried that his blood pressures to elevated. Modifying Factors: None Associated Signs & Symptoms: Elevated blood pressures for the last 3 weeks, chest pain Risk Factors: History of hypertension PFSH Past Medical History Cancer: Yes (RIGHT LUNG/ SKIN CA ) Cardiovascular Problems: Yes (HTN, cholesterol) Diminished Hearing: No Gastrointestinal Disorders: Yes (HX GI BLEED) Genitourinary: Yes (BPH) Hypertension: Yes Musculoskeletal: Yes (DDD) Psychiatric: Yes Integumentary: Yes (CA) ?: Not Past Surgical History Abdominal Surgery: Yes (HERNIA) Genitourinary Surgery: Yes (URETHRAL, PROSTATE) Other Surgery: Yes (SKIN CA REMOVAL, HEMORRHOID) Social History Alcohol Use: No Tobacco Use: No Substance Use: No Allergies-Medications (Allergen,Severity, Reaction): Coded Allergies: Sulfa (Sulfonamide Antibiotics) (Unverified Allergy, Severe, Hives, ) aspirin (Verified Allergy, Severe, Anaphylaxis, 11/06/16) methylene blue (Unverified Allergy, Unknown, RASH, 11/06/16) red dye (Verified Allergy, Unknown, RASH, 11/06/16) Uncoded Allergies: MEPROBAMATE (Allergy, Severe, Psychosis, 06/14/16) Tri-Mix (Papaverin,Phentolamine,Prostaglandin) (Allergy, Severe, Swelling, 08/04/16) blisters, sores on skin Reported Meds & Prescriptions Reported Meds & Active Scripts Active Reported Finasteride 5 Mg Tab 5 Mg PO DAILY Do not crush. Bupropion HCl ER 12 HR (Bupropion HCl) 150 Mg Tab 150 Mg PO DAILY Flexeril (Cyclobenzaprine HCl) 10 Mg Tab 10 Mg PO BID Temazepam 30 Mg Cap 30 Mg PO HS PRN Donepezil 5 Mg Tab 5 Mg PO DAILY Gabapentin 600 Mg Tab 600 Mg PO TID Tamsulosin (Tamsulosin HCl) 0.4 Mg Cap 0.4 Mg PO DAILY Oxycodone-Acetaminophen 10-325 mg Tab 1 Tab PO TID PRN Lisinopril 10 Mg Tab 10 Mg PO DAILY Review of Systems Except as stated in HPI: all other systems reviewed are Neg Physical Exam Narrative GENERAL: Well-developed Elderly male patient currently in mild distress. Awake and oriented 3. SKIN: Focused skin assessment warm/dry. HEAD: Atraumatic. Normocephalic. EYES: Pupils equal and round. No scleral icterus. No injection or drainage. ENT: No nasal bleeding or discharge. Mucous membranes pink and moist. NECK: Trachea midline. No JVD. Supple. CARDIOVASCULAR: Regular rate and rhythm. No murmur appreciated. Pulses are present and equal bilaterally. RESPIRATORY: No accessory muscle use. Clear to auscultation. Breath sounds equal bilaterally. GASTROINTESTINAL: Abdomen soft, non-tender, nondistended. Hepatic and splenic margins not palpable. MUSCULOSKELETAL: No obvious deformities. No clubbing. No cyanosis. No edema. NEUROLOGICAL: Awake and alert. No obvious cranial nerve deficits. Motor grossly within normal limits. Normal speech. PSYCHIATRIC: Appropriate mood and affect; insight and judgment normal. Data Data Last Documented VS Vital Signs Date Time Temp Pulse Resp B/P (MAP) Pulse Ox O2 Delivery O2 Flow Rate FiO2 02/23/17 17:30 94 18 151/99 (116) 97 Room Air 02/23/17 14:36 97.9 Orders Orders Electrocardiogram (02/23/17 15:12) Basic Metabolic Panel (Bmp) (02/23/17 15:12) Ckmb (Isoenzyme) Profile (02/23/17 15:12) Complete Blood Count With Diff (02/23/17 15:12) Magnesium (Mg) (02/23/17 15:12) Prothrombin Time / Inr (Pt) (02/23/17 15:12) Act Partial Throm Time (Ptt) (02/23/17 15:12) Troponin I (02/23/17 15:12) Chest, Pa & Lat (02/23/17 15:12) CKMB (02/23/17 17:58) CKMB% (02/23/17 17:58) Urinalysis - C+S If Indicated (02/23/17 19:40) Admit Order (Ed Use Only) (02/23/17 19:41) Labs Laboratory Tests Test 02/23/17 17:58 White Blood Count 10.1 TH/MM3 Red Blood Count 4.99 MIL/MM3 Hemoglobin 15.1 GM/DL Hematocrit 44.1 % Mean Corpuscular Volume 88.4 FL Mean Corpuscular Hemoglobin 30.3 PG Mean Corpuscular Hemoglobin Concent 34.3 % Red Cell Distribution Width 13.4 % Platelet Count 241 TH/MM3 Mean Platelet Volume 9.3 FL Neutrophils (%) (Auto) 65.5 % Lymphocytes (%) (Auto) 21.2 % Monocytes (%) (Auto) 10.8 % Eosinophils (%) (Auto) 2.1 % Basophils (%) (Auto) 0.4 % Neutrophils # (Auto) 6.6 TH/MM3 Lymphocytes # (Auto) 2.1 TH/MM3 Monocytes # (Auto) 1.1 TH/MM3 Eosinophils # (Auto) 0.2 TH/MM3 Basophils # (Auto) 0.0 TH/MM3 CBC Comment DIFF FINAL Differential Comment Prothrombin Time 10.7 SEC Prothromb Time International Ratio 1.1 RATIO Activated Partial Thromboplast Time 26.4 SEC Blood Urea Nitrogen 11 MG/DL Creatinine 1.29 MG/DL Random Glucose 146 MG/DL Calcium Level 8.5 MG/DL Magnesium Level 1.9 MG/DL Sodium Level 141 MEQ/L Potassium Level 4.3 MEQ/L Chloride Level 104 MEQ/L Carbon Dioxide Level 30.8 MEQ/L Anion Gap 6 MEQ/L Estimat Glomerular Filtration Rate 54 ML/MIN Total Creatine Kinase 110 U/L Creatine Kinase MB 1.1 NG/ML Troponin I LESS THAN 0.02 NG/ML MDM Medical Decision Making Medical Screen Exam Complete: Yes Emergency Medical Condition: Yes Medical Record Reviewed: Yes Interpretation(s) Laboratory Tests Test 02/23/17 17:58 Monocytes (%) (Auto) 10.8 % (0.0-8.0) Monocytes # (Auto) 1.1 TH/MM3 (0-0.9) Random Glucose 146 MG/DL (74-106) Estimat Glomerular Filtration Rate 54 ML/MIN (>89) Troponin I LESS THAN 0.02 NG/ML Last 24 hours Impressions Chest X-Ray 02/23/17 1512 Signed Impressions: Service Date/Time: Thursday, February 23, 2017 15:29 - CONCLUSION: No acute cardiopulmonary abnormality is identified. Darius Steel MD Differential Diagnosis Elevated blood pressures, chest pains: ACS versus hypertensive urgency versus anxiety attack versus metabolic issues Narrative Course Chest x-ray and lab work was otherwise unremarkable. There is concern considering patient's complaint of chest pain that the patient needs to be evaluated further for chest pain. Planning to admit the patient to chest pain center for further evaluation. Diagnosis Primary Impression: Chest pain Admitting Information Admitting Physician Requests: Admit Carlo Griggs MD Feb 23, 2017 18:02
[2017-02-23] MEDS ORDERED: DONE5TAB7 PO (18:15)
[2017-02-23] MEDS ORDERED: CYCL10TA PO (18:15)
[2017-02-23] MEDS ORDERED: BUPR150T5 PO (18:15)
[2017-02-23] MEDS ORDERED: TEMA30CA PO (18:15)
[2017-02-23] MEDS ORDERED: FINA5TAB2 PO (18:15)
[2017-02-23 18:18] LABS: AUTOMATED NEUTROPHIL # 6.6 TH/MM3 (1.8-7.7); BASOPHIL % 0.4 % (0.0-2.0); EOSINOPHIL # 0.2 TH/MM3 (0-0.4); EOSINOPHIL % 2.1 % (0.0-4.0); HEMATOCRIT 44.1 % (39.0-51.0); HEMOGLOBIN 15.1 GM/DL (13.0-17.0); LYMPH % 21.2 % (9.0-44.0); LYMPHOCYTE # 2.1 TH/MM3 (1.0-4.8); MEAN CELL VOLUME 88.4 FL (80.0-100.0); MEAN CORPUSCULAR HEMOGLOBIN 30.3 PG (27.0-34.0); MEAN CORPUSCULAR HGB CONC 34.3 % (32.0-36.0); MEAN PLATELET VOLUME 9.3 FL (7.0-11.0); MONO % 10.8 % (0.0-8.0); MONOCYTE # 1.1 TH/MM3 (0-0.9); NEUT % 65.5 % (16.0-70.0); PLATELET COUNT 241 TH/MM3 (150-450); RED BLOOD COUNT 4.99 MIL/MM3 (4.50-5.90); RED CELL DISTRIBUTION WIDTH 13.4 % (11.6-17.2); WHITE BLOOD COUNT 10.1 TH/MM3 (4.0-11.0)
[2017-02-23 18:33] LABS: INTERNATIONAL NORMALIZED RATIO 1.1 RATIO; PROTHROMBIN TIME - PATIENT 10.7 SEC (9.8-11.6)
[2017-02-23 18:49] LABS: BICARBONATE 30.8 MEQ/L (21.0-32.0); BLOOD UREA NITROGEN 11 MG/DL (7-18); CALCIUM 8.5 MG/DL (8.5-10.1); CHLORIDE 104 MEQ/L (98-107); CREATININE 1.29 MG/DL (0.60-1.30); GLOMERULAR FILTRATION RATE 54 ML/MIN (>89); GLUCOSE,RANDOM 146 MG/DL (74-106); MAGNESIUM 1.9 MG/DL (1.5-2.5); SODIUM (NA) 141 MEQ/L (136-145)
[2017-02-23 18:53] LABS: TROPONIN I LESS THAN 0.02 NG/ML (0.02-0.05)
[2017-02-23 20:18] LABS: AMORPHOUS SEDIMENT, URINE FEW; BACTERIA, URINE MANY /hpf; BILIRUBIN, URINE NEG (NEG); BLOOD, URINE SMALL (NEG); GLUCOSE,URINE TRACE mg/dL (NEG); KETONE, URINE TRACE mg/dL (NEG); MUCUS URINE FEW /lpf (OCC); NITRITE,URINE NEG (NEG); PH, URINE 5.5 (5.0-8.5); URINE COLOR YELLOW (YELLW/STRAW); URINE LEUKOCYTE ESTERASE LARGE (NEG)
[2017-02-23 21:00] VITALS: BP 153/99; PULSE 82; RESP 18; O2SAT 96
[2017-02-23] MEDS ORDERED: NITROGLYCERIN 0.4 MG SL 25 TABS/BTL SL PRN (21:45)
[2017-02-23] MEDS ORDERED: SODIUM CHLORIDE 0.9% FLUSH 10 ML FLUSH IV FLUSH PRN (21:45)
[2017-02-23 22:31] LABS: TROPONIN I LESS THAN 0.02 NG/ML (0.02-0.05)
[2017-02-23 23:44] VITALS: PULSE 82
[2017-02-24] VITALS (9 sets, daily range): BP systolic 138–188; BP diastolic 89–115; PULSE 78–85; RESP 16–20; TEMP 95.6–98.1; O2SAT 93–96
[2017-02-24 01:19] LABS: TROPONIN I LESS THAN 0.02 NG/ML (0.02-0.05)
[2017-02-24] MEDS ORDERED: ONDANSETRON HCL 4 MG/2 ML VIAL IV PUSH PRN (07:30)
[2017-02-24] MEDS ORDERED: ACETAMINOPHEN 500 MG CPLT PO PRN (07:30)
[2017-02-24] MEDS ORDERED: SODIUM CHLORIDE 0.9% FLUSH 10 ML FLUSH IV FLUSH SCH (09:00)
--- NOTE | 2017-02-24 09:10 | EKG ---
Date Performed: 02/23/2017 Time Performed: 17:41:58 PTAGE: 76 years EKG: Sinus rhythm MARKED LEFT AXIS DEVIATION INCOMPLETE RIGHT BUNDLE BRANCH BLOCK ABNORMAL ECG NO SIG CHANGE PREVIOUS TRACING : 11/06/2016 20.23 DOCTOR: Fidel Mcdonough Interpretating Date/Time 02/24/2017 09:10:03
--- NOTE | 2017-02-24 09:14 | HHI.HP ---
[facility] Primary Care Physician Dr. Campbell Henning Chief Complaint Chest pain History of Present Illness 76-year-old male with history of hypertension and hyperlipidemia presents to emergency room for further evaluation of elevated blood pressure and chest pain. 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 Onset of elevated blood pressure 15-20 days ago. Normally takes lisinopril 10 mg daily but due to elevated blood pressure starting taking lisinopril three times daily the last couple of days without improvement. Onset of nonexertional chest pain began yesterday afternoon. Location "left side of sternum." Severity "moderate." Radiation to left arm. Duration 1-2 hours. Associated symptoms shortness of breath. Denied nausea or vomiting. No known precipitating or relieving factors. Review of Systems General: No fatigue,weakness, fever, chills, recent illness, or change in appetite. HEENT: No CARY, no vision changes, no nasal congestion or drainage, no dysphasia CV: As stated above. No current chest pain or pressure. RESP: No SOB, cough, wheeze, or recent URI. GI: No nausea, vomiting, or bowel changes. No unintentional weight gain or weight loss. : History of BPH and urinary retention, endorses multiple bladder and urethral surgeries. Follows with a urologist. EXT: No lower leg edema, no paraesthesias MS: Chronic pain bilateral knees and back. Ambulated with a cane. No recent injury or trauma, however endorses carried multiple heavy boxes of gunnar on 02/07/17 and reports that is when chest pain began (this differs from reported yesterday onset of chest pain, may be due to language barrier). NEURO: No change in memory, LOC, motor/sensory deficits. Reports frequent LOC over the past few months. PSYCH: No anxiety or depression SKIN: No rashes, no concerning lesions Past Family Social History Allergies: Coded Allergies: Sulfa (Sulfonamide Antibiotics) (Unverified Allergy, Severe, Hives, ) aspirin (Verified Allergy, Severe, Anaphylaxis, 11/06/16) methylene blue (Unverified Allergy, Unknown, RASH, 11/06/16) red dye (Verified Allergy, Unknown, RASH, 11/06/16) Uncoded Allergies: MEPROBAMATE (Allergy, Severe, Psychosis, 06/14/16) Tri-Mix (Papaverin,Phentolamine,Prostaglandin) (Allergy, Severe, Swelling, 08/04/16) blisters, sores on skin Past Medical History Hypertension, hyperlipidemia, BPH, skin cancer, chronic pain, tobacco use, urinary retention Past Surgical History Prostatectomy, 5 hernia repairs, 7 ureteral surgeries, x20 bladder surgeries, lobectomy (right, reports 10cm mass removed, non cancerous however points to right auxiliary) Reported Medications Reported Meds & Active Scripts Active Reported Finasteride 5 Mg Tab 5 Mg PO DAILY Do not crush. Bupropion HCl ER 12 HR (Bupropion HCl) 150 Mg Tab 150 Mg PO DAILY Flexeril (Cyclobenzaprine HCl) 10 Mg Tab 10 Mg PO BID Temazepam 30 Mg Cap 30 Mg PO HS PRN Donepezil 5 Mg Tab 5 Mg PO DAILY Gabapentin 600 Mg Tab 600 Mg PO TID Tamsulosin (Tamsulosin HCl) 0.4 Mg 2 tablets PO DAILY Oxycodone-Acetaminophen 10-325 mg Tab 1 Tab PO TID PRN Lisinopril 10 Mg Tab 10 Mg PO DAILY Active Ordered Medications Current Medications Medications (Trade) Dose Ordered Sig/Xi Route Start Time Stop Time Status Last Admin (NS Flush) 2 ml UNSCH PRN IV FLUSH 02/23/17 21:45 (NS Flush) 2 ml BID IV FLUSH 02/24/17 09:00 (Nitrostat Sl) 0.4 mg Q5M PRN SL 02/23/17 21:45 (Tylenol) 500 mg Q4H PRN PO 02/24/17 07:30 (Zofran Inj) 4 mg Q6H PRN IV PUSH 02/24/17 07:30 Social History Known hypertension and hyperlipidemia. No known coronary artery disease or diabetes. Endorses intermittent lifelong smoking, Smoking 1-2 months followed then quitting for 1-2 months. Denies and alcohol or illegal drug use. From [place]. Lives in [facility]. Ambulates with a cane. Past cardiac testing No recent cardiac testing. Denies ever requiring a cardiac catheterization. Reports cardiac testing including echocardiogram and stress test 2 years ago reported to be normal. Physical Exam Vital Signs Vital Signs Date Time Temp Pulse Resp B/P (MAP) Pulse Ox O2 Delivery O2 Flow Rate FiO2 02/24/17 07:34 93 21 02/24/17 04:01 78 02/24/17 03:36 98.1 85 18 144/89 (107) 94 02/24/17 02:04 79 16 154/94 (114) 95 02/24/17 01:45 138/89 (105) 02/24/17 01:31 98.1 78 18 183/115 (137) 93 178/102 (127) 188/108 (134) 02/24/17 00:17 84 02/24/17 00:17 84 02/24/17 00:00 96 02/23/17 23:44 82 02/23/17 22:10 02/23/17 21:00 82 18 153/99 (117) 96 Room Air 02/23/17 17:30 94 18 151/99 (116) 97 Room Air 02/23/17 16:30 98 18 123/91 (102) 97 Room Air 02/23/17 14:36 97.9 117 16 194/106 (135) 99 Physical Exam GENERAL: Alert WN, WD, NAD, pleasant, elderly male HEAD: NC, AT CV: RRR, without murmur, rub, gallop, no JVD, S1-S2 no S3-S4. RESP: Clear lungs throughout bilateral, no crackles, wheeze, rhonchi, symmetrical chest rise, nonlabored, able to speak in full sentences ABD: Soft, NT, ND, no masses, positive bowel tones EXT: Pulses +24, no dependent edema MS: Normal tone 4 extremities, nontender, no obvious deformities, full range of motion NEURO: CN II through CN XII grossly intact, motor strength 5/5 PSYCH: A+O 3, pleasant affect, appropriate speech, mood, insight and judgment SKIN: Normal turgor, normal texture, no lesions, no rashes, brisk cap refill, even hair distribution Laboratory Laboratory Tests Test 02/23/17 17:58 02/23/17 19:48 02/23/17 21:45 02/24/17 00:30 White Blood Count 10.1 Red Blood Count 4.99 Hemoglobin 15.1 Hematocrit 44.1 Mean Corpuscular Volume 88.4 Mean Corpuscular Hemoglobin 30.3 Mean Corpuscular Hemoglobin Concent 34.3 Red Cell Distribution Width 13.4 Platelet Count 241 Mean Platelet Volume 9.3 Neutrophils (%) (Auto) 65.5 Lymphocytes (%) (Auto) 21.2 Monocytes (%) (Auto) 10.8 Eosinophils (%) (Auto) 2.1 Basophils (%) (Auto) 0.4 Neutrophils # (Auto) 6.6 Lymphocytes # (Auto) 2.1 Monocytes # (Auto) 1.1 Eosinophils # (Auto) 0.2 Basophils # (Auto) 0.0 CBC Comment DIFF FINAL Differential Comment Prothrombin Time 10.7 Prothromb Time International Ratio 1.1 Activated Partial Thromboplast Time 26.4 Blood Urea Nitrogen 11 Creatinine 1.29 Random Glucose 146 Calcium Level 8.5 Magnesium Level 1.9 Sodium Level 141 Potassium Level 4.3 Chloride Level 104 Carbon Dioxide Level 30.8 Anion Gap 6 Estimat Glomerular Filtration Rate 54 Total Creatine Kinase 110 96 100 Creatine Kinase MB 1.1 Troponin I LESS THAN 0.02 LESS THAN 0.02 LESS THAN 0.02 Urine Color YELLOW Urine Turbidity HAZY Urine pH 5.5 Urine Specific [place] 1.014 Urine Protein 30 Urine Glucose (UA) TRACE Urine Ketones TRACE Urine Occult Blood SMALL Urine Nitrite NEG Urine Bilirubin NEG Urine Urobilinogen LESS THAN 2.0 Urine Leukocyte Esterase LARGE Urine RBC 5 Urine WBC 66 Urine Amorphous Sediment FEW Urine Bacteria MANY Urine Mucus FEW Microscopic Urinalysis Comment CULTURE INDICATED Date/Time Source Procedure Growth Status 02/23/17 19:48 Urine Random Urine Urine Culture Pending Received Result Diagram: 02/23/17 1758 02/23/17 1758 Imaging Last 48 hours Impressions Chest X-Ray 02/23/17 1512 Signed Impressions: Service Date/Time: Thursday, February 23, 2017 15:29 - CONCLUSION: No acute cardiopulmonary abnormality is identified. Darius Steel MD Course EKG Normal sinus rhythm, left axis deviation, no ST or T-segment changes Caprini VTE Risk Assessment Caprini VTE Risk Assessment: Mod/High Risk (score >= 2) Caprini Risk Assessment Model Point Value = 1 Point Value = 2 Point Value = 3 Point Value = 5 Age 41-60 Minor surgery BMI > 25 kg/m2 Swollen legs Varicose veins or History of unexplained or recurrent spontaneous Oral contraceptives or hormone replacement Sepsis (< 1 month) Serious lung disease, including pneumonia (< 1 month) Abnormal pulmonary function Acute myocardial infarction Congestive heart failure (< 1 month) History of inflammatory bowel disease Medical patient at bed rest Age 61-74 Arthroscopic surgery Major open surgery (> 45 min) Laparoscopic surgery (> 45 min) Malignancy Confined to bed (> 72 hours) Immobilizing plaster cast Central venous access Age >= 75 History of VTE Family history of VTE Factor V Leiden Prothrombin [id number] Lupus anticoagulant Anticardiolipin antibodies Elevated serum homocysteine Heparin-induced thrombocytopenia Other congenital or acquired thrombophilia Stroke (< 1 month) Elective arthroplasty Hip, pelvis, or leg fracture Acute spinal cord injury (< 1 month) Prophylaxis Regimen Total Risk Factor Score Risk Level Prophylaxis Regimen 0-1 Low Early ambulation 2 Moderate Order ONE of the following: *Sequential Compression Device (SCD) *Heparin 5000 units SQ BID 3-4 Higher Order ONE of the following medications: *Heparin 5000 units SQ TID *Enoxaparin/Lovenox 40 mg SQ daily (WT < 150 kg, CrCl > 30 mL/min) *Enoxaparin/Lovenox 30 mg SQ daily (WT < 150 kg, CrCl > 10-29 mL/min) *Enoxaparin/Lovenox 30 mg SQ BID (WT < 150 kg, CrCl > 30 mL/min) AND/OR *Sequential Compression Device (SCD) 5 or more Highest Order ONE of the following medications: *Heparin 5000 units SQ TID (Preferred with Epidurals) *Enoxaparin/Lovenox 40 mg SQ daily (WT < 150 kg, CrCl > 30 mL/min) *Enoxaparin/Lovenox 30 mg SQ daily (WT < 150 kg, CrCl > 10-29 mL/min) *Enoxaparin/Lovenox 30 mg SQ BID (WT < 150 kg, CrCl > 30 mL/min) AND *Sequential Compression Device (SCD) Assessment and Plan Assessment and Plan #1 Chest pain-admitted chest pain center. Ruled out with 3, cardiac enzymes, and monitored overnight. Will be seen and evaluated by Dr. Fidel Mcdonough. Discussed likelihood of completing chemical stress test later this morning. This will be determined after evaluation by valve repairer reclamation. Patient agreeable to plan of care. Hold aspirin due to verify severe allergy. #2 Hypertension-continue lisinopril and monitoring of blood pressure Lily Lovelace Feb 24, 2017 09:14
[2017-02-24] MEDS ORDERED: buPROPion HCL 150 MG SUSTAINED RELEASE TAB PO SCH (09:45)
[2017-02-24] MEDS ORDERED: LISINOPRIL 10 MG TAB PO SCH (09:45)
[2017-02-24] MEDS ORDERED: TAMSULOSIN HCL 0.4 MG CAP PO SCH (11:00)
[2017-02-24] MEDS ORDERED: cloNIDine HCL 0.1 MG TAB PO PRN (11:30)
[2017-02-24] MEDS ORDERED: REGADENOSON INJ 0.4 MG/5 ML SYR ONE (13:13)
--- NOTE | 2017-02-24 14:06 | EKG ---
Date Performed: 02/24/2017 Time Performed: 01:28:42 PTAGE: 76 years EKG: Sinus rhythm MARKED LEFT AXIS DEVIATION INCOMPLETE RIGHT BUNDLE BRANCH BLOCK SEPTAL MYOCARDIAL INFARCTION AGE UND ETERMINED ABNORMAL ECG NO SIGNIFICANT CHANGE PREVIOUS TRACING : 02/23/2017 21.43 DOCTOR: Fidel Mcdonough Interpretating Date/Time 02/24/2017 14:05:04
--- NOTE | 2017-02-24 14:09 | EKG ---
Date Performed: 02/23/2017 Time Performed: 21:43:05 PTAGE: 76 years EKG: Sinus rhythm INCOMPLETE RIGHT BUNDLE BRANCH BLOCK LEFT ANTERIOR FASCICULAR BLOCK SEPTAL MYOCARDIAL INFARCTION AGE UNDETERMINED NO SIG CHANGE ABNORMAL ECG PREVIOUS TRACING : 02/23/2017 17.41 DOCTOR: Fidel Mcdonough Interpretating Date/Time 02/24/2017 14:08:01
--- NOTE | 2017-02-24 14:12 | TR ---
Date Performed: 02/24/2017 Time Performed: 13:32:31 DOCTOR: Fidel Mcdonough DRUG LIST: CLINICAL HISTORY: REASON FOR TEST: REASON FOR ENDING: OBSERVATION: CONCLUSION: Patient exercised using the [place] protocol. No electrocardiographic changes were see n to suggest ischemia. Hemodynamic response to exercise was normal. No significant arrhythmia was pre sent. COMMENTS:
--- NOTE | 2017-02-24 15:54 | RADRPT ---
EXAM DATE/TIME: 02/24/2017 13:02 [facility] COMPARISON: No previous studies available for comparison. INDICATIONS : Left sided chest pain. Angina. DOSE: 26.6 mCi Tc99m Myoview at stress. 8.2 mCi Tc99m Myoview at rest. 0.4 mg Lexiscan STRESS SYMPTOMS: None. EJECTION FRACTION: 70% MEDICAL HISTORY : Hypercholesterolemia. Hypertension. Carcinoma, lung. SURGICAL HISTORY : Inguinal hernia repair. ENCOUNTER: Initial ACUITY: 1 day PAIN SCALE: 2/10 LOCATION: Left chest TECHNIQUE: The patient underwent pharmacologic stress with infusion of prescribed dose. Continuous ECG tracing was monitored during stress. Gated SPECT imaging was performed after stress and conventional SPECT i maging was performed at rest. The examination was performed on a SPECT/CT scanner, both attenuation and non-corrected datasets were reviewed. FINDINGS: DISTRIBUTION: The maximum perfused segment at stress is in the anterior lateral wall. PERFUSION STUDY: The pattern of perfusion at stress is within normal limits. There is a summed stress score of zero. GATED STUDY: There is intact wall motion and thickening without hypokinetic or dyskinetic segments. CONCLUSION: 1. No fixed or reversible defects to suggest ischemia or infarction. 2. Normal wall motion and the calculated ejection fraction. RISK CATEGORY: Low (<1% Annual Mortality Rate) Campbell Antunez MD on February 24, 2017 at 15:50 Board Certified Radiologist. This report was verified electronically.
--- NOTE | 2017-02-24 16:08 | HHI.DCPOC ---
Discharge Care Plan Diagnosis: (1) Atypical chest pain (2) Hypertension Goals to Promote Your Health * To prevent worsening of your condition and complications * To maintain your health at the optimal level Directions to Meet Your Goals Take your medications as prescribed Follow your dietary instruction Follow activity as directed Keep your appointments as scheduled Take your immunizations and boosters as scheduled If your symptoms worsen call your PCP, if no PCP go to Urgent Care Center or Emergency Room Smoking is Dangerous to Your Health. Avoid second hand smoke Call the 24-hour hour crisis hotline for domestic abuse at Lily Lovelace Feb 24, 2017 16:08
[2017-02-24] MEDS ORDERED: LISI-515 PO (16:09)
== END 2017-02-24 17:19 | disposition home or self-care (01) ==
LOC: NEPC 14:33 → NEDA 19:43 → NEPHCDU 22:53
PROVIDERS: ADMIT Internal Medicine Cardiovascular Disease; ATTEND Internal Medicine Cardiovascular Disease
DX: R07.9 Chest pain, unspecified (principal); R55 Syncope and collapse; I10 Essential (primary) hypertension; N40.1 Benign prostatic hyperplasia with lower urinary tract symptoms; Z79.899 Other long term (current) drug therapy; E78.5 Hyperlipidemia, unspecified; R06.02 Shortness of breath; G89.29 Other chronic pain; F17.210 Nicotine dependence, cigarettes, uncomplicated; B96.20 Unspecified Escherichia coli [E. coli] as the cause of diseases classified elsewhere; I45.10 Unspecified right bundle-branch block; R94.31 Abnormal electrocardiogram [ECG] [EKG]; I44.4 Left anterior fascicular block
CPT/HCPCS: 71046; 78452; 80048; 81001; 82550; 82552; 83735; 84484; 85025; 85610; 85730; 87077; 87086; 87186; 93005; 93017; 99285; A9502; G0378; J2785

== ENCOUNTER 2017-07-22 08:56 | Emergency (ER) | payer MEDICARE, MEDICAID ==
[~2017-07-22] VITALS: Ht 177.8 cm; Wt 82.0 kg
[~2017-07-22 08:56] MED LIST changes: +BUPR150T5 PO; +CYCL10TA PO; +DONE5TAB7 PO; +FINA5TAB2 PO; -HYDR12.57 PO; +LISI-515 PO; -LISI10TA3 PO; -MECL-62 PO; +TEMA30CA PO
[2017-07-22 09:02] VITALS: BP 135/64; PULSE 99; RESP 18; TEMP 98.1; O2SAT 94
--- NOTE | 2017-07-22 10:21 | RADRPT ---
EXAM DATE: 07/22/2017 10:17 AM EDT AGE/SEX: 77 years / Male INDICATIONS: Right side headache. CLINICAL DATA: This is the patient's initial encounter. Patient reports that signs and symptoms have been present for > 1 year and indicates a pain score of 5/10. MEDICAL/SURGICAL HISTORY: Carcinoma, lung. Hypertension. Umbilical hernia repair. RADIATION DOSE: 56.35 CTDI (mGy) COMPARISON: No prior exams available for comparison. TECHNIQUE: CT of the head without contrast. Using automated exposure control and adjustment of the mA and/or kV according to patient size, radiation dose was kept as low as reasonably achievable to ob tain optimal diagnostic quality images. FINDINGS: There is mild volume loss and patchy hypodensity in the bilateral subcortical white matter, centrum s emiovale and periventricular white matter, nonspecific though most characteristic of chronic microvas cular ischemic disease. There are no fractures. No signs of mass or acute infarction. CONCLUSION: 1. Atrophy and white matter disease. Electronically signed by: Simon Beckman MD 07/22/2017 10:20 AM EDT
[2017-07-22] MEDS ORDERED: LEVOFLOXACIN 750 MG TAB PO ONE (10:30)
--- NOTE | 2017-07-22 10:32 | PD ---
HPI Chief Complaint: Headache Time Seen by Provider: 09:21 Travel History International Travel<30 days: No Contact w/Intl Traveler<30days: No Traveled to known affect area: No History of Present Illness HPI Patient comes in complaining of her right ear pain, with green drainage, this been so painful that the patient has not been using his hearing aid. No alleviating factor. Aggravated by movement of the right ear. Patient also has noticed a lump on his right side of his jaw. Patient is [place]-speaking only, history was performed with a high energy forming equipment operator at bedside. Patient denies any associated factors such as fever, nausea, vomiting, diarrhea, chest pain, back pain, abdominal pain, neck pain. PFSH Past Medical History Cancer: Yes (RIGHT LUNG/ SKIN CA ) Cardiovascular Problems: Yes High Cholesterol: Yes Diminished Hearing: Yes (HEARING AIDS) Gastrointestinal Disorders: Yes (HX GI BLEED) Genitourinary: Yes (BPH) Hypertension: Yes Musculoskeletal: Yes (DDD) Psychiatric: Yes Integumentary: Yes (CA) Past Surgical History Abdominal Surgery: Yes (HERNIA) Genitourinary Surgery: Yes (URETHRAL, PROSTATE) Other Surgery: Yes (SKIN CA REMOVAL, HEMORRHOID) Social History Alcohol Use: No Tobacco Use: No Substance Use: No Allergies-Medications (Allergen,Severity, Reaction): Coded Allergies: Sulfa (Sulfonamide Antibiotics) (Unverified Allergy, Severe, Hives, ) aspirin (Verified Allergy, Severe, Anaphylaxis, 11/06/16) methylene blue (Unverified Allergy, Unknown, RASH, 11/06/16) red dye (Verified Allergy, Unknown, RASH, 11/06/16) Uncoded Allergies: MEPROBAMATE (Allergy, Severe, Psychosis, 06/14/16) Tri-Mix (Papaverin,Phentolamine,Prostaglandin) (Allergy, Severe, Swelling, 08/04/16) blisters, sores on skin Reported Meds & Prescriptions Reported Meds & Active Scripts Active Ultram (Tramadol HCl) 50 Mg Tab 50 Mg PO Q6H PRN Cipro (Ciprofloxacin HCl) 500 Mg Tab 500 Mg PO BID 10 Days Lisinopril 20 Mg Tab 20 Mg PO DAILY Reported Finasteride 5 Mg Tab 5 Mg PO DAILY Do not crush. Bupropion HCl ER 12 HR (Bupropion HCl) 150 Mg Tab 150 Mg PO DAILY Flexeril (Cyclobenzaprine HCl) 10 Mg Tab 10 Mg PO BID Temazepam 30 Mg Cap 30 Mg PO HS PRN Donepezil 5 Mg Tab 5 Mg PO DAILY Gabapentin 600 Mg Tab 600 Mg PO TID Tamsulosin (Tamsulosin HCl) 0.4 Mg Cap 0.4 Mg PO DAILY Oxycodone-Acetaminophen 10-325 mg Tab 1 Tab PO TID PRN Review of Systems General / Constitutional: No: Fever Eyes: No: Visual changes HENT: Positive: Ear Discharge, Earache Cardiovascular: No: Chest Pain or Discomfort Respiratory: No: Shortness of Breath Gastrointestinal: No: Abdominal Pain Genitourinary: No: Dysuria Musculoskeletal: No: Pain Skin: No Rash Neurologic: No: Weakness Psychiatric: No: Depression Endocrine: No: Polydipsia Hematologic/Lymphatic: No: Easy Bruising Physical Exam Narrative GENERAL: SKIN: Warm and dry. HEAD: Atraumatic. Normocephalic. EYES: Pupils equal and round. No scleral icterus. No injection or drainage. ENT: No nasal bleeding or discharge. Mucous membranes pink and moist. Right ear canal shows edema along with greenish discharge noted, unable to note to visualize the tympanic membrane. NECK: Trachea midline. No JVD. Anterior cervical lymphadenopathy noted on the right side CARDIOVASCULAR: Regular rate and rhythm. RESPIRATORY: No accessory muscle use. Clear to auscultation. Breath sounds equal bilaterally. GASTROINTESTINAL: Abdomen soft, non-tender, nondistended. Hepatic and splenic margins not palpable. MUSCULOSKELETAL: Extremities without clubbing, cyanosis, or edema. No obvious deformities. NEUROLOGICAL: Awake and alert. No obvious cranial nerve deficits. Motor grossly within normal limits. Five out of 5 muscle strength in the arms and legs. Normal speech. PSYCHIATRIC: Appropriate mood and affect; insight and judgment normal. Data Data Last Documented VS Orders Orders Ct Brain W/O Iv Contrast(Rout) (07/22/17 09:21) Levofloxacin (Levaquin) (07/22/17 10:30) Ed Discharge Order (07/22/17 11:04) MDM Medical Decision Making Medical Screen Exam Complete: Yes Emergency Medical Condition: Yes Medical Record Reviewed: Yes Differential Diagnosis Otitis externa versus otitis media versus sinusitis versus mastoiditis versus intracranial hemorrhage Narrative Course CT read by radiologist as atrophy and white matter disease Diagnosis Primary Impression: Right otitis externa Qualified Codes: H60.501 - Unspecified acute noninfective otitis externa, right ear Patient Instructions: General Instructions, Otitis Externa (ED) Scripts Tramadol (Ultram) 50 Mg Tab 50 MG PO Q6H Y for PAIN, #12 TAB 0 Refills Prov: Noel Drummond MD 07/22/17 Ciprofloxacin (Cipro) 500 Mg Tab 500 MG PO BID for Infection for 10 Days, #20 TAB 0 Refills Prov: Noel Drummond MD 07/22/17 Disposition: 01 DISCHARGE HOME Condition: Stable Noel Drummond MD Jul 22, 2017 10:32
[2017-07-22] MEDS ORDERED: TRAM50 PO (10:39)
[2017-07-22] MEDS ORDERED: CIPR-9 PO (10:39)
== END 2017-07-22 11:40 | disposition home or self-care (01) ==
LOC: NEPE 08:56
DX: H60.91 Unspecified otitis externa, right ear (principal); H91.90 Unspecified hearing loss, unspecified ear; Z88.2 Allergy status to sulfonamides
CPT/HCPCS: 70450